=== PATIENT | female | born 1990 | race Caucasian/White ===

== ENCOUNTER 2019-04-18 09:26 | Emergency (ER) | payer BC, OTHER, SELFPAY ==
[2019-04-18 09:34] VITALS: BP 132/77; PULSE 104; RESP 20; TEMP 36.8; O2SAT 99
--- NOTE | 2019-04-18 09:36 | ED.GENADULT ---
HPI - General Adult General Chief complaint: Upper Respiratory Infection Stated complaint: Sore throat with flu symptoms Time Seen by Provider: 04/18/19 09:48 Source: patient and RN notes reviewed Mode of arrival: ambulatory Limitations: no limitations History of Present Illness HPI narrative: This is a 28 years old female presents to the office for an evaluation of cold symptoms for one week. Worsen today with cough and shortness of breathe when she takes a deep breathing. She also reports bad sore throat. Exposed to influenza A three days ago. She is 28 weeks . No treatment prior to arrival. Related Data Home Medications Medication Instructions Recorded Confirmed no.144-folic acid mcg PO 04/18/19 [] Allergies Allergy/AdvReac Type Severity Reaction Status Date / Time No Known Allergies Allergy Verified 04/18/19 09:41 Review of Systems Review of Systems: Narrative: CONSTITUTIONAL: Denies fever, chills, sweats. ENT: Reports head congestion, sore throat. Denies ears pain CARDIOVASCULAR: Denies chest pain RESPIRATORY: Reports cough with chest tightness and dyspnea on exertion GASTROINTESTINAL: Denies abdominal pain, nausea, vomiting, diarrhea. GENITOURINARY: Denies urinary symptoms or discharge SKIN: Denies rash MUSCULOSKELETAL: Denies acute back pain NEUROLOGIC: Denies lightheaded PMFSH Past Medical History Medical History Gestational HTN Surgical History Surgical History H/O section Jan 2017 Family History Family History Sibling Diabetes mellitus Comments At time of signature, I agree with nursing past medical, surgical, social and family history. There is no relevant family history pertinent to the presenting complaint. Exam Narrative: Exam Narrative: GENERAL: This is a well-nourished, well-developed patient, in no apparent distress. EYES:Sclera clear/white. Vision is grossly intact. EARS: External ears normal, auditory canals clear and without drainage, TMs normal without perforation. Hearing grossly intact. NOSE: External nose normal with no obvious nasal discharge, nares without redness, no rhinorrhea. THROAT: Mucous membranes moist, posterior pharynx clear. NECK: Neck supple, non-tender without lymphadenopathy, masses or thyromegaly. CARDIOVASCULAR: Regular rate and rhythm without murmurs, gallops, or rubs. RESPIRATORY: Clear to auscultation. Breath sounds equal bilaterally. No wheezes, rales, or rhonchi. SKIN: warm, intact with no suspicious lesions or rash, good texture and turgor. NEURO: awake, alert, and oriented to person, place and time. There were no obvious focal neurologic abnormalities. Steady gait [place] Coma Scale Eye Opening: Spontaneous 4 [place] Coma Scale Motor: Obeys Commands 6 [place] Coma Scale Verbal: Oriented 5 Course Vital Signs Vital signs: Vital Signs Temperature 98.2 F 04/18/19 09:34 Pulse Rate 104 H 04/18/19 09:34 Respiratory Rate 20 04/18/19 09:34 Blood Pressure 132/77 04/18/19 09:34 Pulse Oximetry 99 04/18/19 09:34 Temperature 98.2 F 04/18/19 09:34 Pulse Rate 104 H 04/18/19 09:34 Respiratory Rate 20 04/18/19 09:34 Blood Pressure 132/77 04/18/19 09:34 Pulse Oximetry 99 04/18/19 09:34 Medical Decision Making MDM Narrative Medical decision making narrative: Discharge instructions reviewed with patient, as well as provided in writing per nursing staff. The instructions also include specific and strict return/GO TO THE ER as well as f/u information. All questions have been answered, and the patient deny any further questions with discharge and discharge plan. Differential Diagnosis Differential Diagnosis: pneumonia, Allergic Rhinitis, Upper respiratory cough syndrome, Pharyngitis, Sinusitis, Bronchitis, otitis media
== END 2019-04-18 10:08 | disposition home or self-care (01) ==
PROVIDERS: Emergency Provider Nurse Practitioner
DX: O99.513 Diseases of the respiratory system complicating pregnancy, third trimester (principal); Z3A.28 28 weeks gestation of pregnancy; J10.1 Influenza due to other identified influenza virus with other respiratory manifestations; O13.3 Gestational [pregnancy-induced] hypertension without significant proteinuria, third trimester
CPT/HCPCS: 87081; 87804; 87880; 99213; G0463

== ENCOUNTER 2019-04-23 17:21 | Outpatient (RCR) | payer BC, OTHER, SELFPAY ==
[2019-04-23] MEDS: RHO(D) IMMUNE GLOBULIN 300 MCG SYRINGE IM (17:50)
== END 2019-07-21 23:59 | disposition home or self-care (01) ==
LOC: ANHLAB 17:21
PROVIDERS: Visit Provider Student in an Organized Health Care Education/Training Program
DX: Z29.13 Encounter for prophylactic Rho(D) immune globulin (principal); O36.0990 Maternal care for other rhesus isoimmunization, unspecified trimester, not applicable or unspecified; Z3A.00 Weeks of gestation of pregnancy not specified
CPT/HCPCS: 36415; 86900; 86901; 90384; 96372; J2790

== ENCOUNTER 2019-06-29 13:31 | Outpatient (CLI) | payer BC, OTHER, SELFPAY ==
[2019-06-29] VITALS (8 sets, daily range): BP systolic 116–139; BP diastolic 57–89; PULSE 81–94
[2019-06-29 14:58] LABS: Basophils Percent Auto 0.5 % (0.2-1.2); Eosinophils Percent Auto 0.3 % (0-4.4); Hematocrit 27.9 % (37.0-47.0); Hemoglobin 8.8 g/dL (12.0-15.0); Immature Granulocyte Absolute 0.09 K/mm3 (0.00-0.031); Lymphocytes Absolute Auto 1.21 K/mm3 (0.9-3.2); Lymphocytes Percent Auto 13.9 % (18.3-44.2); Mean Corpuscular HGB Conc 31.5 g/dl (32-36); Mean Corpuscular Hemoglobin 25.1 pg (26-34); Mean Corpuscular Volume 79.5 fl (80-100); Monocytes Absolute Auto 0.6 K/mm3 (0.1-0.6); Monocytes Percent Auto 6.4 % (2.6-8.5); Neutrophils Absolute Auto 6.8 K/mm3 (1.3-6.7); Neutrophils Percent Auto 77.9 % (45.5-73.1); Nucleated Red Blood Cells Perc 0.2 % (0.0-0.2); Platelet Count Result 174 k/mm3 (150-375); Red Blood Count 3.51 M/mm3 (4.2-5.4); Red Cell Distribution Width 15.7 % (11.5-14.5); White Blood Count 8.7 K/mm3 (4.5-10.0)
[2019-06-29 15:00] LABS: Creatinine Urine 155.6 mg/dL; Total Protein Urine Random 18 mg/dL
[2019-06-29 15:01] LABS: Add Urine Microscopic? YES; Appearance Urine Cloudy (Clear); Bacteria Urine Trace /hpf; Bilirubin Urine Negative (Negative); Blood Urine Negative (Negative); Color Urine Yellow (Yellow); Glucose Urine UA Negative (Negative); Ketones Urine Negative (Negative); Leukocyte Esterase Ur Negative LEU/UL (NEGATIVE); Mucus Urine Heavy /lpf; Nitrate Urine Negative (Negative); Protein Urine 1+ mg/dL (Negative); Specific Grav Ur 1.021 (1.001-1.035); Squamous Epithelial Cell Urine Many /hpf (Few); Urobilinogen Urine Negative mg/dL (<2.0); WBC Urine 0-3 /hpf (0-3)
--- NOTE | 2019-06-29 15:03 | OBADM ---
This patient, Brina Boone, admitted to the OB room OB Post 116 for observation. Patient/family oriented to hospital policies and general routines including ID bracelet, bed and alarms, visiting hours, pain management, procedures, bathroom and other care routines, personal items, smoking policy, room service/diet, and visiting hours. Patient/Family are encouraged to report perceived risks to care and to ask questions if they do not understand what they are told or what they should do.
[2019-06-29 15:06] LABS: Alanine Aminotransferase 13 U/L (4-35); Albumin Level 3.3 g/dL (3.5-5.1); Alkaline Phosphatase 177 U/L (38-126); Aspartate Amino Transferase 22 U/L (14-36); Bilirubin,Total 0.5 mg/dL (0.2-1.3); Blood Urea Nitrogen 9 mg/dL (7-17); Calcium 8.4 mg/dL (8.4-10.2); Carbon Dioxide 22 mmol/L (22-30); Chloride 105 mmol/L (98-107); Estimated Glomerular Filt Rate > 60; Glucose 78 mg/dL (65-105); Potassium 3.9 mmol/L (3.4-5.0); Sodium 134 mmol/L (137-145); Uric Acid 4.2 mg/dL (2.5-7.5)
--- NOTE | 2019-06-29 15:27 | PM.OBTRLD ---
OB - Triage/Final Diagnosis Visit Information Date of evaluation: 06/29/19 Reason for evaluation: other (htn) Evaluation Laboratory results: Laboratory Tests 06/29/19 06/29/19 06/29/19 14:45 14:45 14:45 WBC 8.7 RBC 3.51 L Hgb 8.8 L Hct 27.9 L MCV 79.5 L MCH 25.1 L MCHC 31.5 L RDW 15.7 H Plt Count 174 MPV 11.0 H Immature Gran % (Auto) 1.0 H Neut % (Auto) 77.9 H Lymph % (Auto) 13.9 L [place] % (Auto) 6.4 Eos % (Auto) 0.3 Baso % (Auto) 0.5 Lymph # (Auto) 1.21 [place] # (Auto) 0.6 Eos # (Auto) 0.0 Baso # (Auto) 0.0 Abs Immat Gran (auto) 0.09 H Absolute Neuts (auto) 6.8 H Absolute Nucleated RBC 0.0 Nucleated RBC % 0.2 Sodium Potassium Chloride Carbon Dioxide BUN Creatinine Estim Creat Clear Calc Estimated GFR Glucose Uric Acid Calcium Total Bilirubin AST ALT Alkaline Phosphatase Total Protein Albumin Urine Color Yellow Urine Appearance Cloudy H Urine pH 6.0 Ur Specific [place] 1.021 Urine Protein 1+ H Urine Glucose (UA) Negative Urine Ketones Negative Ur Blood (Man) Negative Urine Nitrate Negative Urine Bilirubin Negative Urine Urobilinogen Negative Ur Leukocyte Esterase Negative Urine WBC 0-3 Ur Squamous Epith Cells Many H Urine Bacteria Trace Urine Mucus Heavy H U Random Total Protein 18 Urine Creatinine 155.6 06/29/19 14:45 WBC RBC Hgb Hct MCV MCH MCHC RDW Plt Count MPV Immature Gran % (Auto) Neut % (Auto) Lymph % (Auto) [place] % (Auto) Eos % (Auto) Baso % (Auto) Lymph # (Auto) [place] # (Auto) Eos # (Auto) Baso # (Auto) Abs Immat Gran (auto) Absolute Neuts (auto) Absolute Nucleated RBC Nucleated RBC % Sodium 134 L Potassium 3.9 Chloride 105 Carbon Dioxide 22 BUN 9 Creatinine 0.70 Estim Creat Clear Calc Not Reportable Estimated GFR > 60 Glucose 78 Uric Acid 4.2 Calcium 8.4 Total Bilirubin 0.5 AST 22 ALT 13 Alkaline Phosphatase 177 H Total Protein 6.0 L Albumin 3.3 L Urine Color Urine Appearance Urine pH Ur Specific [place] Urine Protein Urine Glucose (UA) Urine Ketones Ur Blood (Man) Urine Nitrate Urine Bilirubin Urine Urobilinogen Ur Leukocyte Esterase Urine WBC Ur Squamous Epith Cells Urine Bacteria Urine Mucus U Random Total Protein Urine Creatinine Vital signs: Vital Signs - 24 hr 06/29/19 14:04 06/29/19 14:15 06/29/19 14:30 Pulse Rate 94 94 81 Blood Pressure 139/89 136/81 129/76 06/29/19 14:45 06/29/19 15:00 Pulse Rate 84 81 Blood Pressure 127/80 116/70
--- NOTE | 2019-07-01 09:40 | PM.IMHP ---
H&P: HPI History of Present Illness Chief complaint: Elevated BP Narrative: Brina Boone is a 28 year old female previous section menstrual was 10/02/2018 EDC of 07/09/2019 confirmed by 8 week ultrasound presents for repeat section her has been uncomplicated risks and benefits were reviewed Review of Systems Review of Systems: All systems reviewed & are unremarkable except as noted in HPI and below PMFSH Past Medical History Medical History Gestational HTN Surgical History Surgical History H/O section Jan 2017 Family History Family History Sibling Diabetes mellitus Meds Home Medications and Allergies Home Medications Medication Instructions Recorded Confirmed Type oseltamivir [Tamiflu] 75 mg PO BID 5 Days #10 cap 04/18/19 Rx no.144-folic acid mcg PO 04/18/19 History [] Allergies Allergy/AdvReac Type Severity Reaction Status Date / Time No Known Allergies Allergy Verified 04/18/19 09:41 Exam Const: General: no acute distress Eyes: General: appearance normal, both eyes and all related structures Neck: Neck: supple and no JVD Thyroid: thyroid normal Resp: Effort & Inspection: normal respiratory effort Auscultation: clear to auscultation bilaterally Cardio: Rate: regular rate Rhythm: regular rhythm GI: Inspection: normal to inspection (Gravid soft uterus. Last cervical check closed) : General: Yes bladder normal to palpation External Female Exam: normal external appearance Speculum Exam - Vagina: normal vaginal discharge and No vaginal bleeding Speculum Exam - Cervix: nontender Bimanual exam- vagina & uterus: bladder normal to palpation and No Cervical tenderness present OB/external & speculum: No vaginal bleeding Skin: General skin exam: no rashes or lesions noted Extrem: General: normal to inspection and no edema Psych: Mental Status: mental status grossly normal Affect: normal affect Assessment and Plan Additional Plan Impression: Term with previous sections Plan: Repeat low-transverse section
== END 2019-06-29 15:45 | disposition home or self-care (01) ==
LOC: ANHOBOP 13:43 → ANHOBPP 13:46
PROVIDERS: Visit Provider Obstetrics & Gynecology
DX: O13.9 Gestational [pregnancy-induced] hypertension without significant proteinuria, unspecified trimester (principal)
CPT/HCPCS: 36415; 59025; 80053; 81001; 82570; 84156; 84550; 85025; 99199

== ENCOUNTER 2019-07-01 13:23 | Outpatient (CLI) | payer BC, OTHER, SELFPAY ==
[2019-07-01 13:55] LABS: Hematocrit 27.9 % (37.0-47.0); Hemoglobin 8.8 g/dL (12.0-15.0); Mean Corpuscular HGB Conc 31.5 g/dl (32-36); Mean Corpuscular Hemoglobin 25.1 pg (26-34); Mean Corpuscular Volume 79.5 fl (80-100); Mean Platelet Volume 11.5 fl (7.4-10.4); Platelet Count Result 173 k/mm3 (150-375); Red Blood Count 3.51 M/mm3 (4.2-5.4); Red Cell Distribution Width 15.7 % (11.5-14.5); White Blood Count 8.1 K/mm3 (4.5-10.0)
[2019-07-02 07:25] LABS: Rapid Plasma Reagin Non-Reactive (NonReactive)
== END 2019-07-01 13:24 | disposition home or self-care (01) ==
PROVIDERS: Visit Provider Obstetrics & Gynecology
DX: Z01.818 Encounter for other preprocedural examination (principal)
CPT/HCPCS: 36415; 85027; 86592; 86850; 86880; 86900; 86901; 86902

== ENCOUNTER 2019-07-02 05:35 | Inpatient (IN) | payer BC, OTHER, SELFPAY ==
[2019-07-02] VITALS (64 sets, daily range): BP systolic 115–150; BP diastolic 64–98; PULSE 72–99; RESP 18–20; TEMP 36.6–37.5; O2SAT 96–100; BMI 39.3
--- NOTE | 2019-07-02 06:16 | WPDHPUPDATE1 ---
History and Physical Update Update Date/Time: 07/02/19 06:16 History and Physical has been reviewed, including an updated exam of the patient. There are NO changes in the patient's condition. Risks, benefits, and alternatives have been discussed and questions answered. Patient agrees to proceed with procedure.
[2019-07-02] MEDS: LACTATED RINGERS 1,000 ML 999 ML IV CONT ×2 (06:25→07:01)
--- NOTE | 2019-07-02 06:47 | LDADM ---
This patient, Brina Boone, was admitted to Labor/Delivery/Recovery 120 on 07/02/19 at 05:35. Plans for and pain management were discussed with patient. Patient/family oriented to hospital policies and general routines including ID bracelet, bed and alarms, visiting hours, pain management, procedures, bathroom and other care routines, personal items, smoking policy, room service/diet and guest tray routines, security routines, and visiting hours. Patient/Family are encouraged to report perceived risks to care and to ask questions if they do not understand what they are told or what they should do. See OBIX for further documentation.
--- NOTE | 2019-07-02 06:57 | WPDANESEPPF ---
Anes - Initial Pre Proc Eval Procedure: Operation Date: 07/02/19 07:30 Proposed Procedures p Repeat Section - Franko Santos MD Date/Time: 07/02/19 06:57 Surgeon: Franko Santos MD Pre Op Diagnosis: previous csection Patient Data Age: 28 Gender: F Height: 5 ft 7 in Weight: 114 kg Last Vital Signs Temp 36.6 C 07/02/19 06:47 Pulse 88 07/02/19 06:14 Resp 20 07/02/19 06:47 BP 117/81 07/02/19 06:14 Allergies Allergy/AdvReac Type Severity Reaction Status Date / Time No Known Allergies Allergy Verified 04/18/19 09:41 Home Medications Medication Instructions Recorded Confirmed Type oseltamivir [Tamiflu] 75 mg PO BID 5 Days #10 cap 04/18/19 Rx no.144-folic acid mcg PO 04/18/19 History [] hydrocodone-acetaminophen [[place]] 1 tablet PO Q4H PRN #30 tablet 07/02/19 Rx Patient hx anesthesia problems: none Family hx anesthesia problems: none PMFSH Past Medical History Medical History Anemia Gestational HTN Surgical History Surgical History H/O section Jan 2017 Family History Family History Sibling Diabetes mellitus Social History Social History Smoking status: Never smoker Substance use: never Spiritual care concerns: No Anes - Eval Final PreProcedure Day of Procedure 07/02/19 06:57 Patient weight: morbidly obese Heart: regular rate and rhythm Lungs: decreased breath sounds Airway: Mallampati scale class II Neurological: alert and oriented Last oral intake: >/= 8 hours ASA classification: III Emergent: no Anesthetic plan: proceed Anesthesia type and monitoring: regional spinal and standard monitoring Informed Consent: The patient's anesthetic plan and its attendant risks and benefits were discussed with the patient/family/POA. Questions were solicited and answers provided to the satisfaction of the patient/family/POA.
[2019-07-02] MEDS: ceFAZolin 2 GM/D5W 50 ML 2 GM/50 ML BAG IVPB (07:24)
--- NOTE | 2019-07-02 08:10 | PM.PROC ---
Procedure Note - Detailed Date of procedure: 07/02/19 Pre-op diagnosis: previous csection Surgeon: Franko Santos MD Postop diagnosis: Previous section/term : Procedure: Repeat low-transverse section Q BL: 705cc Anesthesia: Spinal Findings: Male infant 9 lb 7 oz/Apgars 8 and 9 at 1 and 5 minutes respectively Complications: None Description of procedure the patient was prepped and draped in the normal sterile fashion and placed in the supine position under excellent spinal anesthetic the abdomen was entered in Pfannenstiel fashion progress through layers to the fascia. Fascia was incised in an upward outward fashion bilaterally. Underlying muscles were sharply dissected. Parietal peritoneum of the elevated by Mayra clamps and entered by sharp dissection. This was carried superiorly then inferiorly to the dome of the bladder. A bladder blade was placed. Bladder flap was formed. Bladder blade returned. Low-transverse incision made and the head delivered in the RADHA position. Nuchal cord was loose x1 reviewed on the occiput. Anterior posterior shoulder delivered spontaneously. Cord clamped x2 and cut. Infant passed off the table with an excellent cry. Placenta delivered intact manually. Uterus cleaned any debris membranes. The lower uterine segment was then closed with continuous running locking 0 Vicryl from lateral edge to lateral edge. This was followed by a 2nd imbricating running locking 0 Vicryl from lateral edge to lateral edge. Hemostasis was assured. The tubes and ovaries appeared within normal limits. The uterus returned to the abdomen. The hysterotomy incision inspected 1 last time noted to be hemostatic. The laps were removed and accounted for. The fascia closed with continuous running 0 Vicryl from lateral edge to midline bilaterally. Irrigation of the subcutaneous layer. The skin closed with 4 O Monocryl and glue. Blood loss estimated at 7 5cc. All sponge, needle, instrument counts were correct. There were no immediate complications
[2019-07-02] MEDS: OXYTOCIN 30 UNITS/NS 500 ML 30 UNITS/500 ML BAG 125 UNITS IV CONT (09:01)
[2019-07-02] MEDS: MORPHINE SULFATE 2 MG/ML INJ 3 MG IV PUSH (09:10)
--- NOTE | 2019-07-02 11:35 | OBPPTRN ---
Addendum entered by Natalia Barriga RN 07/02/19 11:35: Pt arrived to floor at 1025. Original Note: Patient transferred to post room #282 via stretcher. Support person present. Oriented to unit, room, information board, rooming in, admission packet and security measures. Patient verbalizes understanding.
[2019-07-02] MEDS: DEXTROSE 5%/0.45% SOD CHL 1,000 ML 125 ML IV CONT (13:32)
[2019-07-02] MEDS: IBUPROFEN 600 MG TABLET PO ×2 (13:56→23:16)
[2019-07-02] MEDS: DOCUSATE SODIUM 100 MG CAPSULE PO (18:19)
[2019-07-02] MEDS: POLYSACCHARIDE IRON COMPLEX 150 MG CAPSULE PO (18:19)
[2019-07-03 04:00] VITALS: BP 130/94; PULSE 95; RESP 18; TEMP 36.8
[2019-07-03 05:51] LABS: Basophils Percent Auto 0.1 % (0.2-1.2); Eosinophils Absolute Auto 0.1 K/mm3 (0-0.3); Hematocrit 25.5 % (37.0-47.0); Hemoglobin 7.9 g/dL (12.0-15.0); Immature Granulocyte Absolute 0.06 K/mm3 (0.00-0.031); Immature Granulocyte Percent A 0.9 % (0-0.5); Lymphocytes Absolute Auto 0.96 K/mm3 (0.9-3.2); Lymphocytes Percent Auto 13.6 % (18.3-44.2); Mean Corpuscular Volume 80.7 fl (80-100); Mean Platelet Volume 11.1 fl (7.4-10.4); Monocytes Absolute Auto 0.5 K/mm3 (0.1-0.6); Monocytes Percent Auto 7.4 % (2.6-8.5); Neutrophils Absolute Auto 5.4 K/mm3 (1.3-6.7); Nucleated Red Blood Cells Perc 0.3 % (0.0-0.2); Platelet Count Result 144 k/mm3 (150-375); Red Blood Count 3.16 M/mm3 (4.2-5.4); Red Cell Distribution Width 15.7 % (11.5-14.5)
--- NOTE | 2019-07-03 06:47 | PM.OBPNVD ---
OB - PN: Subj Subjective Date/time seen: 07/03/19 06:47 Patient comments: no complaints and pain well controlled baby status: doing well and nursing well OB - PN: Obj Data Labs CBC & Chem 7: 07/03/19 04:34 Labs: Laboratory Results - last 24 hr 07/03/19 04:34 WBC 7.0 RBC 3.16 L Hgb 7.9 L Hct 25.5 L MCV 80.7 MCH 25.0 L MCHC 31.0 L RDW 15.7 H Plt Count 144 L MPV 11.1 H Immature Gran % (Auto) 0.9 H Neut % (Auto) 77.0 H Lymph % (Auto) 13.6 L [place] % (Auto) 7.4 Eos % (Auto) 1.0 Baso % (Auto) 0.1 L Lymph # (Auto) 0.96 [place] # (Auto) 0.5 Eos # (Auto) 0.1 Baso # (Auto) 0.0 Abs Immat Gran (auto) 0.06 H Absolute Neuts (auto) 5.4 Absolute Nucleated RBC 0.0 Nucleated RBC % 0.3 H OB - PN A/P Plan day: 1 Plan: routine care Time Spent With Patient Time: Total time spent is greater than 50% in coordination of care (as documented) at patient's floor/unit and/or counseling patient: Time with patient: less than 15 minutes Review of Systems Review of Systems: All systems reviewed & are unremarkable except as noted in HPI and below Exam Const: General: no acute distress Eyes: General: appearance normal, both eyes and all related structures Neck: Neck: supple and no JVD Thyroid: thyroid normal Resp: Effort & Inspection: normal respiratory effort Auscultation: clear to auscultation bilaterally Cardio: Rate: regular rate Rhythm: regular rhythm GI: Inspection: normal to inspection and incision (cdi) : General: Yes other (flow light) Skin: General skin exam: no rashes or lesions noted Extrem: General: normal to inspection and no edema Psych: Mental Status: mental status grossly normal Affect: normal affect
[2019-07-03] MEDS: DOCUSATE SODIUM 100 MG CAPSULE PO ×2 (07:50→17:00)
[2019-07-03] MEDS: POLYSACCHARIDE IRON COMPLEX 150 MG CAPSULE PO ×2 (07:50→17:00)
[2019-07-03] MEDS: IBUPROFEN 600 MG TABLET PO ×3 (07:51→21:04)
[2019-07-03 08:20] VITALS: BP 107/61; PULSE 76; RESP 18; TEMP 36.9; O2SAT 98
--- NOTE | 2019-07-03 08:52 | WPDANLDPN2 ---
Anes-Prog Note L&D Date/Time: 07/03/19 08:52 Comfortable throughout: section Neuraxial method: spinal Epidural/Spinal procedure site: clean & non-tender Neuro status: Neuro function grossly intact. Cardiovascular status: normal Respiratory status: normal Airway patency: baseline Mental status: baseline Post-Op hydration status: normal Vital Signs: Last Vital Signs Temp 36.8 C 07/03/19 04:00 Pulse 95 07/03/19 04:00 Resp 18 07/03/19 04:00 BP 130/94 H 07/03/19 04:00 Pulse Ox 100 07/02/19 14:00 Pain score (VAS): 0/10. Patient resting in bed at time of assessment, appears comfortable. I/O: Intake & Output 07/02/19 07/03/19 07/03/19 23:59 07:59 15:59 Intake Total 2100 550 Output Total 1900 1100 Balance 200 -550 Post-procedural complaints: none Patient feedback: Patient satisfied with anesthetic care.
--- NOTE | 2019-07-03 08:52 | WPDANLDNPN2 ---
Anes-Prog Note L&D-Neuraxial Date/Time: 07/03/19 08:52 Neuraxial medications: intrathecal PF morphine Opiod-related complaints: none Patient feedback: Patient satisfied with post-operative pain management.
[2019-07-03] MEDS: SERTRALINE HCL 50 MG TABLET PO (11:36)
[2019-07-03] MEDS: RHO(D) IMMUNE GLOBULIN 300 MCG SYRINGE IM (13:17)
[2019-07-03 19:15] VITALS: BP 133/81; PULSE 89; RESP 18; TEMP 36.7; O2SAT 100
--- NOTE | 2019-07-03 20:00 | PC.NURSE ---
Patient viewed the discharge video Mother & Baby Care, The First Two Weeks . Patient was given the opportunity and encouraged to ask questions. Patient verbalized understanding of information shared and has been given the mother/baby guide for home reference.
[2019-07-04] MEDS: IBUPROFEN 600 MG TABLET PO ×2 (04:58→12:17)
[2019-07-04] MEDS: DOCUSATE SODIUM 100 MG CAPSULE PO (08:06)
[2019-07-04] MEDS: SERTRALINE HCL 50 MG TABLET PO (08:06)
[2019-07-04] MEDS: POLYSACCHARIDE IRON COMPLEX 150 MG CAPSULE PO (08:07)
[2019-07-04 08:55] VITALS: BP 141/97; PULSE 83; RESP 18; TEMP 36.5
[2019-07-04 11:35] VITALS: BP 111/70
--- NOTE | 2019-07-04 11:50 | PM.OBPNVD ---
OB - PN: Subj Subjective Date/time seen: 07/04/19 11:50 Narrative: Pain OK. Tolerating diet. Would like to go home. OB - PN: Obj Data Labs CBC & Chem 7: 07/03/19 04:34 Labs: Laboratory Results - last 24 hr 07/03/19 04:34 Blood Type O Negative Antibody Screen TNP ILYA, IgG Interpret TNP ILYA, Poly Interpret TNP ILYA, Complement Interp TNP Screen Negative Baby's Blood Type B pos Baby's ILYA Positive Doses of RhIg Required 1 OB - PN A/P Plan Comments: A: POD#2, doing well. P: Home to f/u 4 weeks. Exam Narrative: Exam Narrative: AVSS ABD soft, nontender, fundus firm. Incision c/d/i. EXT nontender
[2019-07-07 10:50] VITALS: BP 122/81; PULSE 85; RESP 20; TEMP 37; O2SAT 99
--- NOTE | 2019-07-08 06:56 | PM.DS ---
DS: Diagnosis Admitting Diagnosis Admitting Diagnosis: Encounter for supervision of normal , unspecified, third trimester term/prev section DS: Summary Time Spent with Patient Time attestation: Total time spent providing and/or coordinating discharge services: Exam Const: General: no acute distress Eyes: General: appearance normal, both eyes and all related structures Neck: Neck: supple and no JVD Thyroid: thyroid normal Resp: Effort & Inspection: normal respiratory effort Auscultation: clear to auscultation bilaterally Cardio: Rate: regular rate Rhythm: regular rhythm GI: Inspection: non-distended GI Palp: Yes Soft to palpation, No Tenderness to palpation present (GI) and No Guarding due to palpation present (GI) Auscultation: normal bowel sounds : General: Yes bladder normal to palpation External Female Exam: normal external appearance Speculum Exam - Vagina: normal vaginal discharge and No vaginal bleeding Speculum Exam - Cervix: nontender Bimanual exam- vagina & uterus: bladder normal to palpation and No Cervical tenderness present OB/external & speculum: No vaginal bleeding Skin: General skin exam: no rashes or lesions noted Extrem: General: normal to inspection and no edema Psych: Mental Status: mental status grossly normal Affect: normal affect Discharge Plan Discharge Attending physician on discharge: Franko Santos Consulting providers: Dick Marcano Discharging Clinician: Franko Santos Patient Disposition: Home, Self-Care Activity: may shower, may drive after 2 weeks and pelvic rest Diet: regular Wound Care Instructions: follow printed instructions Discharge Instructions: Call or return if temperature above 100.4? F, increased abdominal pain, increased vaginal bleeding or any new problems. Education: Mom and Baby Guide and Preeclampsia Handout Given to: Mother Follow-Up: Call your delivering provider's office for an appointment to be seen in: 4 Weeks Mom and baby should come to the [facility] for the follow-up appointment. Appointment Date/Time: July 07, 2019 at 11:00 am What to expect at your follow-up visit: Physical Assessment Call [phone] if you are unable to keep your appointment time. BREAST CARE: 1. Wear a snug supportive bra. 2. For engorgement discomfort: Bottle Feeding: A. May apply ice packs ABDOMINAL INCISION: (if applicable) 1. Allow incision to air dry 2. Do NOT use lotions for powders on your incision 3. When showering, allow soap and water to run over the incision, but do not wash incision EPISIOTOMY/PERINEAL CARE: 1. Until bleeding stops, use your glenda bottle after urinating 2. Change your pad frequently throughout the day 3. No tub baths until seen by your physician - You may shower ACTIVITY: 1. Rest as much as possible. 2. Do not exercise or lift anything heavier than your baby (such as laundry or other children.) 3. Avoid stairs or driving as much as possible. 4. Do not put anything into the vagina. No douching, tampons, or sexual activity until seen by physician. NOTIFY PHYSICIAN IF YOU HAVE ANY QUESTIONS OR IF ANY OF THE FOLLOWING SYMPTOMS OCCUR: 1. If your incision becomes red, swollen, or more painful than what you have experienced in the hospital. 2. If your vaginal bleeding becomes foul smelling. 3. If your vaginal bleeding becomes more heavy than a period or if your bleeding changes from pink to bright red. However, you may pass an occasional walnut-sized clot once or twice for the first week . 4. If you experience a sharp, shooting pain in you calves. 5. If you discover a hard, reddened area on your breast or if you experience flu-like symptoms. DIET: 1. Eat regular, well-balanced meals. 2. Drink plenty of fluids daily. If , drink to thirst. Stand Alone Forms: General Discharge Information Follow-up/Referrals: Franko Santos
--- NOTE | 2019-07-14 17:10 | P.HP_ITS ---
H&P: HPI History of Present Illness Chief complaint: previous csection Narrative: Brina Boone is a 28 year old female multip in active labor. previous section Review of Systems Review of Systems: All systems reviewed & are unremarkable except as noted in HPI and below PMFSH Past Medical History Medical History Anemia Gestational HTN Surgical History Surgical History H/O section Jan 2017 Family History Family History Sibling Diabetes mellitus Social History Social History Smoking status: Never smoker Substance use: never Spiritual care concerns: No Meds Home Medications and Allergies Home Medications Medication Instructions Recorded Confirmed Type mcg PO 04/18/19 History cholecalciferol (vitamin D3) 07/02/19 History ferrous sulfate 07/02/19 History hydrocodone-acetaminophen [[place]] 1 tablet PO Q4H PRN #30 tablet 07/02/19 Rx ibuprofen 600 mg PO Q6H PRN #30 tablet 07/04/19 Rx Allergies Allergy/AdvReac Type Severity Reaction Status Date / Time No Known Allergies Allergy Verified 04/18/19 09:41 Exam Const: General: no acute distress Eyes: General: appearance normal, both eyes and all related structures Neck: Neck: supple and no JVD Thyroid: thyroid normal Resp: Effort & Inspection: normal respiratory effort Auscultation: clear to auscultation bilaterally Cardio: Rate: regular rate Rhythm: regular rhythm GI: Inspection: non-distended GI Palp: Yes Soft to palpation, No Tenderness to palpation present (GI) and No Guarding due to palpation present (GI) Auscultation: normal bowel sounds : General: Yes bladder normal to palpation External Female Exam: normal external appearance Speculum Exam - Vagina: normal vaginal discharge and No vaginal bleeding Speculum Exam - Cervix: nontender Bimanual exam- vagina & uterus: bladder normal to palpation and No Cervical tenderness present OB/external & speculum: No vaginal bleeding Skin: General skin exam: no rashes or lesions noted Extrem: General: normal to inspection and no edema Psych: Mental Status: mental status grossly normal Affect: normal affect Assessment and Plan Additional Plan impresion:term/prev section Plan: rltcs
== END 2019-07-04 12:27 | disposition home or self-care (01) | DRG 788 ==
LOC: ANHLDR 05:39 → ANHOB2 07-04 11:53 → ANHLDR 07-06 14:51 → ANHOB2 07-06 14:51
PROVIDERS: Admitting Provider Obstetrics & Gynecology; Visit Provider Obstetrics & Gynecology
PROC: 10D00Z1 Extraction of Products of Conception, Low, Open Approach (ICD-10-PCS; CPT 59514; principal; 2019-07-02 07:30)
DX: O34.211 Maternal care for low transverse scar from previous cesarean delivery (principal); Z3A.39 39 weeks gestation of pregnancy; Z37.0 Single live birth; Z23 Encounter for immunization; O99.214 Obesity complicating childbirth; E66.01 Morbid (severe) obesity due to excess calories; O69.81X0 Labor and delivery complicated by cord around neck, without compression, not applicable or unspecified
CPT/HCPCS: 36415; 85025; 85461; 86880; 90384; A9270; J0131; J0690; J2210; J2270; J2274; J2405; J2590; J2790; J7120

== ENCOUNTER 2020-02-16 11:01 | Emergency (ER) | payer BC, OTHER, SELFPAY ==
--- NOTE | ~2020-02-16 | US_ITS ---
EXAMINATION: US pelvic complete w TV DATE: 02/16/2020 13:05 INDICATION: Right adnexal cyst seen on CT. Comparison:CT dated 02/16/2020 TECHNIQUE: Multiple transabdominal and endovaginal sonographic images of the pelvis performed. FINDINGS: The uterus measures 9.7 x 4.6 x 5.7 cm. The endometrial complex measures 1.2 cm. The right ovary measures 4.3 x 4.7 x 3.8 cm and the left ovary measures 2.2 x 1.6 x 1.7 cm. There is a 3.4 cm simple cyst of the right ovary. There is no free fluid in the pelvis. There are no abnormal masses seen on either side. IMPRESSION: 1. 3.4 cm simple cyst of the right ovary. 2: Mild endometrial thickening measuring 1.2 cm. Reviewed, dictated and finalized at location A. ITE FABRICATOR
--- NOTE | ~2020-02-16 | CT_ITS ---
EXAMINATION: CT abdomen pelvis w con DATE: 02/16/2020 12:16 INDICATION: Generalized abdominal pain. TECHNIQUE: Computed tomography (CT) of the abdomen and pelvis was performed with 100 mL Omnipaque 350 intravenous contrast. Automated exposure control and iterative reconstruction technique were employe d. The dose-length product was 1278.79 mGy-cm. COMPARISON: None. FINDINGS: The visualized portions of the lung bases are clear without pneumonia or pleural effusion. The heart size is normal. No pericardial effusion. The liver, gallbladder, spleen, pancreas, adrenal glands, and kidneys are normal. There is a 4.3 cm mass in right ovary. There are no dilated loops of bowel. There are changes of appendectomy. There are no pathologically enlarged lymph nodes. There is no free intraperitoneal fluid. There is mild lumbar spondylosis. IMPRESSION: 1. 4.3 cm mass in right ovary, most likely a hemorrhagic cyst. Pelvis ultrasound is recommended. Reviewed, dictated and finalized at location A. CAR FOREMAN IMPRESSION: 1. 4.3 cm mass in right ovary, most likely a hemorrhagic cyst. Pelvis ultrasoun d is recommended.
[2020-02-16 11:13] VITALS: BP 115/79; PULSE 86; RESP 16; TEMP 36.3; O2SAT 99
--- NOTE | 2020-02-16 11:14 | ED.ABDPAIN ---
HPI - Abdominal Pain General Chief Complaint: Abdominal Pain Stated Complaint: severe abd pain onset 50 min ago, gone now Time Seen by Provider: 02/16/20 11:14 Source: patient and family Mode of arrival: ambulatory Limitations: no limitations History of Present Illness HPI narrative: Patient is a 29-year-old female that presents for evaluation of centralized abdominal pain that began approximately an hour ago. Described as sharp, cramping in nature in the center of the abdomen with radiation to the back. No associated dysuria she has had some associated diarrhea and nausea. Patient denies fever or chills. She has a history of appendectomy but denies other abdominal surgeries. She states she has an implanted control and doubts she is . Patient says she had an oatmeal pie for breakfast and then pain started soon after. She denies history of gallbladder issues. Pain initially had resolved in the waiting room but now has returned. Patient denies abdominal bloating. Related Data Home Medications Medication Instructions Recorded Confirmed mcg PO 04/18/19 cholecalciferol (vitamin D3) 07/02/19 ferrous sulfate 07/02/19 Allergies Allergy/AdvReac Type Severity Reaction Status Date / Time No Known Allergies Allergy Verified 02/16/20 11:17 Review of Systems Review of Systems: Narrative: CONSTITUTIONAL: Denies fever, chills, or sweats. EYES: Denies visual changes, redness, or discharge. ENT: Denies rhinorrhea, congestion, sore throat, or otalgia. CARDIOVASCULAR: Denies chest pain, palpitations, or edema. RESPIRATORY: Denies cough or dyspnea. GASTROINTESTINAL: Reports abdominal pain, nausea without vomiting, reports diarrhea GENITOURINARY: Denies dysuria or hematuria. SKIN: Denies rash or itching. MUSCULOSKELETAL: Denies back pain, joint pain, or myalgia. NEUROLOGIC: Denies headache, numbness, or weakness. [facility] Past Medical History Medical History (Updated 02/16/20 @ 12:35 by Maritza Veliz MD) Anemia Gestational HTN Surgical History Surgical History (Updated 02/16/20 @ 12:16 by Maritza Veliz MD) H/O section Jan 2017 History of appendectomy Family History Family History Sibling Diabetes mellitus Social History Social History Smoking status: Never smoker Substance use: never Spiritual care concerns: No Exam Narrative: Exam Narrative: GENERAL: Awake, alert, conversant, tearful HEAD: Normocephalic, atraumatic. EYES: PERRLA and EOMI. ENT: Nares clear, no rhinorrhea or epistaxis. Mucous membranes moist. NECK: Supple. CHEST: No respiratory distress, breathing even and non labored HEART: Regular rate, sinus rhythm ABDOMEN: Obese, Non distended, pain is not reproducible on exam, no epigastric pain, no periumbilical tenderness, no focal quadrant tenderness, no rebound rigidity or guarding, no lower pelvic tenderness EXTREMITIES: Normal range of motion. No edema. SKIN: Warm, dry, no rash. NEURO:No focal deficits. Alert and oriented x3 Course Vital Signs Vital signs: Vital Signs Temperature 36.3 C L 02/16/20 11:13 Pulse Rate 86 02/16/20 11:13 Respiratory Rate 16 02/16/20 11:13 Blood Pressure 115/79 02/16/20 11:13 Pulse Oximetry 99 02/16/20 11:13 Temperature 36.3 C L 02/16/20 11:13 Pulse Rate 86 02/16/20 11:13 Respiratory Rate 16 02/16/20 11:13 Blood Pressure 115/79 02/16/20 11:13 Pulse Oximetry 99 02/16/20 11:13 MDM - Abdominal Pain MDM Narrative Medical decision making narrative: Patient presented for evaluation of abdominal cramping which is intermittent in nature. At times it is severe, at bedside the pain is not reproducible on patient has quite a benign abdominal exam without peritoneal signs. Patient was given IV fluids, antiemetic and pain medication. Patient was reassessed and patient's abdomen is so
[2020-02-16] MEDS: SODIUM CHLORIDE 0.9% IV 1,000 ML 999 ML IV CONT (11:30)
[2020-02-16] MEDS: MORPHINE SULFATE (*CRX) 4 MG/ML INJ IV PUSH (11:30)
[2020-02-16] MEDS: ONDANSETRON INJ 4 MG/2 ML VIAL IV PUSH (11:30)
[2020-02-16] MEDS: DICYCLOMINE HCL INJ 20 MG/2 ML VIAL IM (11:30)
[2020-02-16 11:35] LABS: Basophils Absolute Auto 0.1 K/mm3 (0.0-0.1); Basophils Percent Auto 0.7 % (0.2-1.2); Eosinophils Percent Auto 0.5 % (0-4.4); Hematocrit 38.9 % (37.0-47.0); Hemoglobin 13.4 g/dL (12.0-15.0); Immature Granulocyte Absolute 0.02 K/mm3 (0.00-0.031); Immature Granulocyte Percent A 0.3 % (0-0.5); Lymphocytes Absolute Auto 1.56 K/mm3 (0.9-3.2); Lymphocytes Percent Auto 21.1 % (18.3-44.2); Mean Corpuscular HGB Conc 34.4 g/dl (32-36); Mean Corpuscular Hemoglobin 29.8 pg (26-34); Mean Corpuscular Volume 86.4 fl (80-100); Mean Platelet Volume 9.9 fl (7.4-10.4); Monocytes Absolute Auto 0.5 K/mm3 (0.1-0.6); Monocytes Percent Auto 6.9 % (2.6-8.5); Neutrophils Absolute Auto 5.2 K/mm3 (1.3-6.7); Neutrophils Percent Auto 70.5 % (45.5-73.1); Platelet Count Result 210 k/mm3 (150-375); White Blood Count 7.4 K/mm3 (4.5-10.0)
[2020-02-16 11:40] LABS: Add Urine Microscopic? YES; Appearance Urine Clear (Clear); Bilirubin Urine Negative (Negative); Blood Urine Negative (Negative); Color Urine Yellow (Yellow); Glucose Urine UA Negative (Negative); Ketones Urine Negative (Negative); Leukocyte Esterase Ur 1+ LEU/UL (Negative); Mucus Urine Rare /lpf; Nitrate Urine Negative (Negative); Protein Urine 1+ mg/dL (Negative); RBC Urine 0-2 /hpf (0-2); Specific Grav Ur 1.023 (1.001-1.035); Squamous Epithelial Cell Urine Few /hpf (Few); Urobilinogen Urine Negative mg/dL (<2.0); WBC Urine 31-50 /hpf
[2020-02-16 11:53] LABS: Alanine Aminotransferase 17 U/L (4-35); Albumin Level 4.1 g/dL (3.5-5.1); Alkaline Phosphatase 65 U/L (38-126); Anion Gap 6 mmol/L (8-16); Aspartate Amino Transferase 24 U/L (14-36); Bilirubin,Total 0.3 mg/dL (0.2-1.3); Blood Urea Nitrogen 11 mg/dL (7-17); Calcium 8.9 mg/dL (8.4-10.2); Carbon Dioxide 26 mmol/L (22-30); Chloride 106 mmol/L (98-107); Estimated CRCL calculation 112 ml/min; Estimated Glomerular Filt Rate > 60; Glucose 107 mg/dL (65-105); Lipase 44 U/L (23-300); Potassium 3.9 mmol/L (3.4-5.0); Sodium 138 mmol/L (137-145)
[2020-02-16 14:09] VITALS: BP 114/63; PULSE 83; RESP 17; O2SAT 99
== END 2020-02-16 14:11 | disposition home or self-care (01) ==
PROVIDERS: Emergency Medicine; Emergency Provider Emergency Medicine
DX: N83.201 Unspecified ovarian cyst, right side (principal); R10.9 Unspecified abdominal pain; D64.9 Anemia, unspecified
CPT/HCPCS: 36415; 74177; 76830; 76856; 80053; 81001; 81025; 83690; 85025; 87077; 87086; 87088; 87186; 96361; 96372; 96374; 96375; 99284; J0500; J2270; J2405; J7030; Q9967

== ENCOUNTER 2020-02-24 14:33 | Emergency (ER) | payer BC, OTHER, SELFPAY ==
[2020-02-24 14:38] VITALS: BP 128/74; PULSE 72; RESP 20; TEMP 36.6; O2SAT 100
--- NOTE | 2020-02-24 14:39 | ED.URI ---
HPI - URI/Sore Throat General Chief Complaint: Upper Respiratory Infection Stated Complaint: sore throat and ear pain Time Seen by Provider: 02/24/20 14:39 Source: patient and RN notes reviewed History of Present Illness HPI Narrative: Patient is a 29-year-old female who presents the urgent care with complaints of sore throat and right ear pain since yesterday. Patient states that no one else in the home is sick. Denies of any fever, nausea, vomiting. Denies of any use of [id number] medication for symptoms. Denies of any known exposure with Strep or Covid. No other acute complaints. No acute distress noted. Patient aware of the plan of care. Some parts of this dictation were generated by voice recognition software and may contain typographical and/or grammatical inaccuracies. Related Data Home Medications Medication Instructions Recorded Confirmed No Home Medications 02/24/20 02/24/20 Allergies Allergy/AdvReac Type Severity Reaction Status Date / Time No Known Allergies Allergy Verified 02/24/20 14:57 Review of Systems Review of Systems: Narrative: CONSTITUTIONAL: Denies fever, chills, or sweats. EYES: Denies visual changes, redness, or discharge. ENT: Reports of sore throat and right ear pain CARDIOVASCULAR: Denies chest pain, palpitations, or edema. RESPIRATORY: Denies cough or dyspnea. GASTROINTESTINAL: Denies abdominal pain, nausea, vomiting, or diarrhea. GENITOURINARY: Denies dysuria or hematuria. SKIN: Denies rash or itching. MUSCULOSKELETAL: Denies back pain, joint pain, or myalgia. NEUROLOGIC: Denies headache, numbness, or weakness. All other systems reviewed are negative, except as documented in HPI. [facility] Past Medical History Medical History (Updated 02/24/20 @ 14:55 by FALGUNI Alexander) Anemia Gestational HTN Surgical History Surgical History (Updated 02/16/20 @ 12:16 by Maritza Veliz MD) H/O section Jan 2017 History of appendectomy Family History Family History Sibling Diabetes mellitus Social History Social History Smoking status: Never smoker Substance use: never Spiritual care concerns: No Comments At the time of my signature, I reviewed and agree with the nursing past medical, surgical, social, and family history. There is no relevant family history pertinent to the patient complaint. Exam Narrative: Exam Narrative: GENERAL: This is a well-nourished, well-developed patient, in no apparent distress. HEAD: normocephalic, atraumatic. EYES: PERRL. Sclera clear/white. Vision is grossly intact. EARS: External ears normal, auditory canals clear and without drainage, TMs normal without perforation. Hearing grossly intact. NOSE: External nose normal with no obvious nasal discharge, nares without redness, no rhinorrhea. THROAT: Mucous membranes moist, moderate erythema noted posterior oropharynx with mild postnasal drainage. No exudate or ulceration. NECK: Neck supple, mild nontender right submandibular lymphadenopathy CARDIOVASCULAR: Regular rate and rhythm without murmurs, gallops, or rubs. RESPIRATORY: Clear to auscultation. Breath sounds equal bilaterally. No wheezes, rales, or rhonchi. SKIN: warm, intact with no suspicious lesions or rash, good texture and turgor. NEURO: awake, alert, and oriented to person, place and time. There were no obvious focal neurologic abnormalities. EXTREMITIES: No clubbing, cyanosis, or edema. Course Vital Signs Vital signs: Vital Signs Temperature 97.8 F 02/24/20 14:38 Pulse Rate 72 02/24/20 14:38 Respiratory Rate 02/24/20 14:38 Blood Pressure 128/74 02/24/20 14:38 Pulse Oximetry 100 02/24/20 14:38 Temperature 97.8 F 02/24/20 14:38 Pulse Rate 72 02/24/20 14:38 Respiratory Rate 20 02/24/20 14:38 Blood Pressure 128/74 02/24/20 14:38 Pulse Oximetry 100 02/24/20 14:38
== END 2020-02-24 14:58 | disposition home or self-care (01) ==
PROVIDERS: Emergency Provider Nurse Practitioner Family
DX: J02.9 Acute pharyngitis, unspecified (principal); Z86.2 Personal history of diseases of the blood and blood-forming organs and certain disorders involving the immune mechanism
CPT/HCPCS: 87081; 87880; 99213; G0463

== ENCOUNTER 2021-05-08 16:43 | Emergency (ER) | payer BC, OTHER, SELFPAY ==
--- NOTE | 2021-05-08 16:48 | ED.NAVMDI ---
HPI - Nausea/Vomiting/Diarrhea General Chief complaint: Nausea/Vomiting/Diarrhea Stated complaint: Abdominal Pain/Diarrhea Time Seen by Provider: 05/08/21 16:55 Source: patient Mode of arrival: ambulatory Limitations: no limitations History of Present Illness HPI Narrative: Ms. Boone is a 30-year-old female patient presenting to the clinic today with complaints of abdomen discomfort and diarrhea x1 day. She reports she has had approximately 6-7 diarrhea stools today with abdominal cramping. She denies any nausea. She is able to keep down fluids states that her stomach will cramp and then she has to use the restroom. No known exposure to anyone with Covid. She has had Covid about a month ago. Reports she went to a birthday green party last night and someone there had a family member who is sick at home with a stomach bug. She denies any fever chills. She denies any abdominal pain other than the cramping MD elicited complaint: diarrhea and abdominal pain Related Data Home Medications Medication Instructions Recorded Confirmed No Home Medications 02/24/20 02/24/20 Allergies Allergy/AdvReac Type Severity Reaction Status Date / Time No Known Allergies Allergy Verified 05/08/21 16:56 Review of Systems Review of Systems: Pertinent positives per HPI. Patient denies any fever, chills, rash, headache, visual changes, dizziness, cough, runny nose, sore throat, shortness of breath, chest pain, palpitations, nausea, vomiting,constipation, or any urinary issues. [facility] Past Medical History Medical History Anemia Gestational HTN Surgical History Surgical History H/O section Jan 2017 History of appendectomy Family History Family History Sibling Diabetes mellitus Social History Social History Smoking status: Never smoker Substance use: never Spiritual care concerns: No Comments At the time of my signature, I reviewed and agree with the nursing past medical, surgical, social, and family history. There is no relevant family history pertinent to the patient complaint. Exam Narrative: General: Well-developed, well nourished, in no apparent distress. Cardio: Regular rate and rhythm, s1 and s2 normal, no murmur appreciated. Resp: Clear to auscultation bilaterally, no rhonchi, rales, wheezing or rubs. Abdomen: Soft, pliable, bowel sounds present in all quadrants, non-tender to palpation, no organomegly, no CVAT tenderness. No suprapubic tenderness. Course Course Emergency Course: Portions of this record may have been created with voice recognition software. Level of Care: Express Care Visit Vital Signs Vital signs: Vital signs reviewed MDM - Nausea/Vomiting/Diarrhea MDM Narrative Medical decision making narrative: Rule out upon exam for appendicitis, constipation, or infectious cause. Patient had normal bowel movement yesterday and started having diarrhea this morning. She denies any fever chills or abdominal pain. She has cramping prior to having a loose stool. Negative Vasquez, Rovsing's, and McBurney's point. She denies any urinary symptoms. She is able to oral hydrate. Discharge Plan Discharge Clinical Impression: Gastroenteritis Patient Disposition: Home, Self-Care Condition: Stable Instructions: Antibiotic Form Additional Instructions: Take prescription medications only as prescribed. Hyoscyamine as directed. May take Imodium as directed as long as there is no blood in your stool Increase fluids and stay well hydrated Tylenol/motrin for pain/fever BRAT diet for diarrhea Clear liquids x 24 hours then advance as tolerated for nausea/vomiting Go to the ED if you develop dehydration, weakness, lethargy, shortness of breath, ami
[2021-05-08 16:50] VITALS: BP 115/66; PULSE 84; RESP 16; TEMP 36.9; O2SAT 99
== END 2021-05-08 17:03 | disposition home or self-care (01) ==
PROVIDERS: Emergency Provider Nurse Practitioner Family
DX: K52.9 Noninfective gastroenteritis and colitis, unspecified (principal); Z86.16 Personal history of COVID-19
CPT/HCPCS: 99213; G0463

== ENCOUNTER 2021-09-03 14:45 | Emergency (ER) | payer BC, OTHER, SELFPAY ==
[2021-09-03 14:48] VITALS: BP 118/72; PULSE 76; RESP 16; TEMP 37.1; O2SAT 100
[2021-09-03 14:55] VITALS: BP 118/72; PULSE 76; RESP 16; TEMP 37.1; O2SAT 100
--- NOTE | 2021-09-03 15:31 | ED.EAR ---
HPI - Ear Problem General Chief complaint: Ear Stated complaint: Ear Pain Time Seen by Provider: 09/03/21 15:31 Source: patient Mode of arrival: ambulatory Limitations: no limitations History of Present Illness HPI Narrative: 30-year-old female presented for complaint of left ear pain worsening over the past 10 days. Endorses intermittent sharp shocking pain. She has been taking Tylenol which is helped but today the pain worsened. Endorses mild sinus pressure and congestion. Denies sore throat, cough, dizziness, tenderness, fevers or chills. MD Complaint: ear pain Related Data Home Medications Medication Instructions Recorded Confirmed etonogestrel 68 mg subdermal 1 implant subdermal ONCE 09/03/21 09/03/21 implant (Nexplanon) Allergies Allergy/AdvReac Type Severity Reaction Status Date / Time No Known Allergies Allergy Verified 09/03/21 14:54 Review of Systems Review of Systems: CONSTITUTIONAL: Denies malaise, chills, or fever. EYES: Denies visual changes, redness, or discharge. ENT: Denies sinus pain, and sore throat. Reports ear pain CARDIOVASCULAR: Denies chest pain, palpitations, or edema. RESPIRATORY: Denies cough or dyspnea. GASTROINTESTINAL: Denies abdominal pain, nausea, vomiting, diarrhea SKIN: Denies rash or itching. MUSCULOSKELETAL: Denies myalgia. NEUROLOGIC: Denies headache. All systems reviewed & are unremarkable except as noted in HPI and below PMFSH Past Medical History Medical History Anemia Gestational HTN Surgical History Surgical History H/O section Jan 2017 History of appendectomy Family History Family History Sibling Diabetes mellitus Social History Social History Smoking status: Never smoker Substance use: never Spiritual care concerns: No Comments At time of signature, agree with nursing past medical, surgical, social and family history. There is no relevant family history pertinent to the presenting complaint Exam Narrative: GENERAL: Well-appearing EYES: conjunctivae clear ENT: Nares clear. Mucous membranes moist. Right TM pearly johnson with dull light reflex; left TM erythematous and bulging with fluid and erythematous tender canal; no tragal tenderness. Oropharynx not erythematous without lesions. CHEST: Clear to auscultation HEART: Regular rate and rhythm. SKIN: Warm, dry, no rash. NEURO: Alert and oriented x3. Course Course Emergency Course: Patient is aware of diagnosis, understands and agrees to treatment plan. Anticipatory guidance given. Patient agrees to follow-up as directed and is aware of reasons to seek care at the emergency department. Portions of this record may have been created with voice recognition software Level of Care: Express Care Visit Vital Signs Vital signs: Vital Signs Temperature 98.8 F 09/03/21 14:48 Pulse Rate 76 09/03/21 14:48 Respiratory Rate 16 09/03/21 14:48 Blood Pressure 118/72 09/03/21 14:48 Pulse Oximetry 100 09/03/21 14:48 Oxygen Delivery Room Air 09/03/21 14:48 Temperature 98.8 F 09/03/21 14:55 Pulse Rate 76 09/03/21 14:55 Respiratory Rate 16 09/03/21 14:55 Blood Pressure 118/72 09/03/21 14:55 Pulse Oximetry 100 09/03/21 14:55 Oxygen Delivery Room Air 09/03/21 14:55 Reviewed Medical Decision Making MDM Narrative Medical decision making narrative: patient is non-toxic appearing and is in no distress. Advised supportive treatment for AOM an antibiotic as directed. Pt is appropriate for outpatient treatment and follow-up. Differential Diagnosis Differential Diagnosis: allergic rhinitis, upper respiratory tract infection, sinusitis, rhinosinusitis, nasopharyngitis, viral pharyngitis, otitis media, otitis externa, eustachi
== END 2021-09-03 15:39 | disposition home or self-care (01) ==
PROVIDERS: Emergency Provider Nurse Practitioner Family
DX: H66.002 Acute suppurative otitis media without spontaneous rupture of ear drum, left ear (principal)
CPT/HCPCS: 99213; G0463

== ENCOUNTER 2021-11-20 09:20 | Emergency (ER) | payer BC, OTHER, SELFPAY ==
--- NOTE | 2021-11-20 09:21 | ED.EAR ---
HPI - Ear Problem General Chief complaint: Ear Stated complaint: Ear Pain Time Seen by Provider: 11/20/21 09:21 Source: patient and RN notes reviewed History of Present Illness HPI Narrative: Patient is a 30-year-old female who presents the urgent care with complaints of left ear pain for 1 week. Patient has been taking Benadryl and Claritin for the last couple days. Denies any drainage from the ear. Denies any fevers or other upper respiratory complaints. No acute distress noted. Patient read the plan of care. Some parts of this dictation were generated by voice recognition software and may contain typographical and/or grammatical inaccuracies. Related Data Home Medications Medication Instructions Recorded Confirmed No Home Medications 11/20/21 11/20/21 Allergies Allergy/AdvReac Type Severity Reaction Status Date / Time No Known Allergies Allergy Verified 11/20/21 09:27 Review of Systems Review of Systems: CONSTITUTIONAL: Denies fever, chills, or sweats. EYES: Denies visual changes, redness, or discharge. ENT: Denies rhinorrhea, congestion, sore throat. Reports of left otalgia CARDIOVASCULAR: Denies chest pain, palpitations, or edema. RESPIRATORY: Denies cough or dyspnea. GASTROINTESTINAL: Denies abdominal pain, nausea, vomiting, or diarrhea. GENITOURINARY: Denies dysuria or hematuria. SKIN: Denies rash or itching. MUSCULOSKELETAL: Denies back pain, joint pain, or myalgia. NEUROLOGIC: Denies headache, numbness, or weakness. All other systems reviewed are negative, except as documented in HPI. [facility] Past Medical History Medical History Anemia Gestational HTN Surgical History Surgical History H/O section Jan 2017 History of appendectomy Family History Family History Sibling Diabetes mellitus Social History Social History Smoking status: Never smoker Substance use: never Spiritual care concerns: No Comments At the time of my signature, I reviewed and agree with the nursing past medical, surgical, social, and family history. There is no relevant family history pertinent to the patient complaint. Exam Narrative: GENERAL: This is a well-nourished, well-developed patient, in no apparent distress. HEAD: normocephalic, atraumatic. EYES: PERRL. Sclera clear/white. Vision is grossly intact. EARS: External ears normal, auditory canals clear and without drainage, mild bilateral eustachian tube dysfunction without otitis. TMs normal without perforation. Hearing grossly intact. NOSE: External nose normal with no obvious nasal discharge, nares without redness, no rhinorrhea. THROAT: Mucous membranes moist, posterior pharynx clear. NECK: Neck supple, non-tender without lymphadenopathy CARDIOVASCULAR: Regular rate and rhythm without murmurs, gallops, or rubs. RESPIRATORY: Clear to auscultation. Breath sounds equal bilaterally. No wheezes, rales, or rhonchi. SKIN: warm, intact with no suspicious lesions or rash, good texture and turgor. NEURO: awake, alert, and oriented to person, place and time. There were no obvious focal neurologic abnormalities. EXTREMITIES: No clubbing, cyanosis, or edema. Course Course Level of Care: Express Care Visit Vital Signs Vital signs: Vital Signs Temperature 97.6 F 11/20/21 09:24 Pulse Rate 67 11/20/21 09:24 Respiratory Rate 20 11/20/21 09:24 Blood Pressure 113/60 11/20/21 09:24 Pulse Oximetry 100 11/20/21 09:24 Oxygen Delivery Room Air 11/20/21 09:24 Temperature 97.6 F 11/20/21 09:24 Pulse Rate 67 11/20/21 09:24 Respiratory Rate 20 11/20/21 09:24 Blood Pressure 113/60 11/20/21 09:24 Pulse Oximetry 100 11/20/21 09:24 Oxygen Delivery Room Air 11/20/21 09:24 Reviewed Medical Decisio
[2021-11-20 09:24] VITALS: BP 113/60; PULSE 67; RESP 20; TEMP 36.4; O2SAT 100
== END 2021-11-20 09:33 | disposition home or self-care (01) ==
PROVIDERS: Emergency Provider Nurse Practitioner Family
DX: H92.02 Otalgia, left ear (principal)
CPT/HCPCS: 99211; G0463

== ENCOUNTER 2021-11-22 11:50 | Emergency (ER) | payer BC, OTHER, SELFPAY ==
[2021-11-22 12:00] VITALS: BP 114/78; PULSE 73; RESP 16; TEMP 36.7; O2SAT 99
--- NOTE | 2021-11-22 12:28 | ED.EAR ---
HPI - Ear Problem General Chief complaint: Ear Stated complaint: L ear pain Time Seen by Provider: 11/22/21 11:51 History of Present Illness HPI Narrative: 30-year-old female presents the emergency room for evaluation of left ear pain. Patient states that she has been experiencing the pain for 4 to 5 days. Patient's admits to recently having an URI symptoms have since resolved. Patient states she was seen at urgent care on Saturday and was told to take Claritin and Flonase for her symptoms. Patient reports ear pain radiates into her throat and jaw. Denies any hearing loss or hearing changes. Denies any known injury or trauma. Denies tinnitus Related Data Allergies Allergy/AdvReac Type Severity Reaction Status Date / Time No Known Allergies Allergy Verified 11/20/21 09:27 Review of Systems Review of Systems: CONSTITUTIONAL: Denies fever, chills, or sweats. EYES: Denies visual changes, redness, or discharge. ENT: Reports left ear pain CARDIOVASCULAR: Denies chest pain, palpitations, or edema. RESPIRATORY: Denies cough or dyspnea. GASTROINTESTINAL: Denies abdominal pain, nausea, vomiting, or diarrhea. GENITOURINARY: Denies dysuria or hematuria. SKIN: Denies rash or itching. MUSCULOSKELETAL: Denies back pain, joint pain, or myalgia. NEUROLOGIC: Denies headache, numbness, dizziness, or weakness. PSYCHIATRIC: Denies anxiety or depression. PMFSH Past Medical History Medical History Anemia Gestational HTN Surgical History Surgical History H/O section Jan 2017 History of appendectomy Family History Family History Sibling Diabetes mellitus Social History Social History Smoking status: Never smoker Substance use: never Spiritual care concerns: No Exam Narrative: GENERAL: Well-appearing, well-nourished, no physical limitations, and in no acute distress. HEAD: Normocephalic, atraumatic. EYES: Conjunctivae normal, PERRLA and EOMI. ENT: External nose normal, Nares clear, no rhinorrhea or epistaxis. Mucous membranes moist. Oropharynx without tonsillar hypertrophy exudate or other lesions. External ears normal, bilateral TMs normal bilaterally. Tenderness extends from posterior to left ear along the corner of the jaw. NECK: Supple. No adenopathy or masses. CHEST: Clear to auscultation. No respiratory distress. No wheezes rales or rhonchi. No tenderness. HEART: Regular rate and rhythm. No murmur heard. Normal peripheral pulses. EXTREMITIES: Normal range of motion. No edema. No clubbing or cyanosis SKIN: Warm, dry, no rash. No noted wounds NEURO: No focal deficits. Alert and oriented x3. MAEW. CN's II-XI intact bilaterally, normal gait PSYCH: Cooperative. Normal mood and affect. Course Vital Signs Vital signs: Vital Signs Temperature 36.7 C 11/22/21 12:00 Pulse Rate 73 11/22/21 12:00 Respiratory Rate 16 11/22/21 12:00 Blood Pressure 114/78 11/22/21 12:00 Pulse Oximetry 99 11/22/21 12:00 Oxygen Delivery Room Air 11/22/21 12:00 Temperature 36.7 C 11/22/21 12:00 Pulse Rate 73 11/22/21 12:00 Respiratory Rate 16 11/22/21 12:00 Blood Pressure 114/78 11/22/21 12:00 Pulse Oximetry 99 11/22/21 12:00 Oxygen Delivery Room Air 11/22/21 12:00 Medical Decision Making Vital Signs Vital Signs: Vital Signs Temperature 36.7 C 11/22/21 12:00 Pulse Rate 73 11/22/21 12:00 Respiratory Rate 16 11/22/21 12:00 Blood Pressure 114/78 11/22/21 12:00 Pulse Oximetry 99 11/22/21 12:00 Oxygen Delivery Room Air 11/22/21 12:00 Temperature 36.7 C 11/22/21 12:00 Pulse Rate 73 11/22/21 12:00 Respiratory Rate 16 11/22/21 12:00 Blood Pressure 114/78 11/22/21 12:00 Pulse Oximetry 99 11/22/21 12:00 Oxygen Delivery R
== END 2021-11-22 12:46 | disposition home or self-care (01) ==
PROVIDERS: Emergency Provider Nurse Practitioner Family
DX: H69.82 Other specified disorders of Eustachian tube, left ear (principal); Z86.2 Personal history of diseases of the blood and blood-forming organs and certain disorders involving the immune mechanism
CPT/HCPCS: 96372; 99283; J1100

== ENCOUNTER 2022-02-13 13:22 | Outpatient (CLI) | payer BC, OTHER, SELFPAY ==
--- NOTE | ~2022-02-13 | US_ITS ---
US breast RT limited INDICATION: Palpable right breast lump TECHNIQUE: Dedicated Limited right breast ultrasound COMPARISON: No prior studies for comparison. FINDINGS: The right breast is composed of normal heterogeneous echotexture without focal solid or cys tic mass. IMPRESSION: 1: Normal right breast ultrasound. BI-RADS CATEGORY 1 - NEGATIVE Reviewed, dictated and finalized at location B. 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
== END 2022-02-13 13:23 | disposition home or self-care (01) ==
PROVIDERS: PCP Physician Assistant; Visit Provider Obstetrics & Gynecology
DX: R92.8 Other abnormal and inconclusive findings on diagnostic imaging of breast (principal); N63.10 Unspecified lump in the right breast, unspecified quadrant
CPT/HCPCS: 76642

== ENCOUNTER 2022-08-17 12:25 | Outpatient (CLI) | payer BC, OTHER, SELFPAY ==
--- NOTE | ~2022-08-17 | MMUS_ITS ---
EXAMINATION: MM diagnostic hugo RT w benjamin, US breast RT limited HISTORY: Right breast lump, 12:00 4 cm from nipple TECHNIQUE: ML, MLO and CC full field and spot 3-D tomosynthesis images of the right breast were perfo rmed and synthetic 2-D images were generated. CAD analysis was submitted and interpreted. High resolu tion targeted right breast ultrasound examination at area of clinical complaint at 12:00 4 cm from ni pple was performed. COMPARISON: 02/13/2022 Limited right breast ultrasound BREAST PARENCHYMAL COMPOSITION: The breasts are heterogeneously dense, which may obscure small masses . FINDINGS: MAMMOGRAPHIC FINDINGS: No suspicious mass or architectural distortion, malignant calcification, skin thickening or retractio n is detected. ULTRASOUND: No suspicious mass or shadowing, cyst or other significant abnormality is detected at the area of cli nical complaint at 12:00 4 cm from nipple IMPRESSION: 1. No mammographic evidence of malignancy 2. Routine annual mammographic screening beginning at age 40 is recommended BI-RADS Category 1: Negative Reviewed, dictated and finalized at location A. IMPRESSION: 1. No mammographic evidence of malignancy 2. Routine annual mammographic screening beginning at age 40 is recommended BI-RADS Category 1: Negative
== END 2022-08-17 12:26 | disposition home or self-care (01) ==
PROVIDERS: PCP Physician Assistant; Visit Provider Obstetrics & Gynecology
DX: N63.10 Unspecified lump in the right breast, unspecified quadrant (principal); R92.8 Other abnormal and inconclusive findings on diagnostic imaging of breast
CPT/HCPCS: 76642; 77061; 77065; G0279

== ENCOUNTER 2023-05-13 12:32 | Emergency (ER) | payer BC, OTHER, SELFPAY ==
[2023-05-13 12:47] VITALS: BP 138/81; PULSE 79; RESP 16; TEMP 37.2; O2SAT 98
--- NOTE | 2023-05-13 13:44 | ED.BACK ---
HPI - Back Pain/Injury General Chief Complaint: Back Pain/Injury Stated Complaint: Back Injury Time Seen by Provider: 05/13/23 13:34 Source: patient and RN notes reviewed Mode of arrival: ambulatory Limitations: no limitations History of Present Illness HPI Narrative: Patient presents today complaining of right-sided low back pain radiating to the anterior and posterior right upper leg. She initially injured herself 3 days ago at the gym weightlifting. She does report some intermittent tingling in the thigh. Denies numbness or tingling in the genitalia. Denies loss of bowel or bladder control. She currently rates her pain 3/10 at rest, which increases to 7/10 with movement. She has tried ibuprofen, Tylenol, icy Hot, and 5 mg Flexeril without relief. Related Data Home Medications Medication Instructions Recorded Confirmed lisdexamfetamine 50 mg capsule mg 05/13/23 (Vyvanse) norethindrone 1 mg-ethinyl tablet 05/13/23 estradiol 20 mcg (21)-iron 75 mg (7) tablet (Blisovi Fe 03/23 (28)) Allergies Allergy/AdvReac Type Severity Reaction Status Date / Time No Known Allergies Allergy Verified 12/12/21 15:00 Review of Systems Review of Systems: CONSTITUTIONAL: Denies body aches, fever, chills, or sweats. EYES: Denies visual changes, redness, or discharge. ENT: Denies rhinorrhea, congestion, sore throat, or otalgia. CARDIOVASCULAR: Denies chest pain, palpitations, or edema. RESPIRATORY: Denies cough or dyspnea. GASTROINTESTINAL: Denies abdominal pain, nausea, vomiting, or diarrhea. GENITOURINARY: Denies dysuria or hematuria. SKIN: Denies rash, itching, or wounds. MUSCULOSKELETAL: Denies joint pain, or myalgia.+ low back pain NEUROLOGIC: Denies headache, numbness, or weakness.+ right leg tingling PSYCH: Denies depression or anxiety. FOR[facility]LY [facility], [facility] Past Medical History Medical History Anemia Gestational HTN Surgical History Surgical History H/O section Jan 2017 History of appendectomy Family History Family History Sibling Diabetes mellitus Social History Social History Smoking status: Never smoker Alcohol intake: never Substance use: never Spiritual care concerns: No Comments At time of signature, I have reviewed and agree with nursing past medical, surgical, social and family history unless otherwise noted. Please see nursing chart for further information. There is no relevant family history pertinent to the presenting complaint Exam Narrative: GENERAL: Well-appearing, well-nourished, and in no acute distress. HEAD: Normocephalic, atraumatic. EYES: EOMI. No redness or drainage. Conjunctivae normal. ENT: Mucous membranes pink and moist. NECK: Normal AROM. CHEST: No respiratory distress. MUSCULOSKELETAL: No bony tenderness of the thoracic or lumbar spine. No tenderness of the right lower lumbar paraspinal muscles or right SI joint. Patient localizes pain to the right lower lumbar paraspinal muscles extending laterally to the right hip. Distal sensation intact. Saddle sensation intact. Capillary refill normal. EXTREMITIES: Normal range of motion. No edema. SKIN: Warm, dry, no rash. Capillary refill normal. Normal skin turgor. NEURO: No focal deficits. Alert and oriented x3. Gait steady. PSYCH: Normal affect. No signs of depression or anxiety. Course Course Level of Care: Express Care Visit Vital Signs Vital signs: Vital Signs Temperature 98.9 F 05/13/23 12:47 Pulse Rate 79 05/13/23 12:47 Respiratory Rate 16 05/13/23 12:47 Blood Pressure 138/81 05/13/23 12:47 Pulse Oximetry 98 05/13/23 12:47 Oxygen Delivery Room Air 05/13/23 12:47 Temperature 98.9 F 05/13/23 12:47 Pulse Rate 79 05/13/23
== END 2023-05-13 13:56 | disposition home or self-care (01) ==
PROVIDERS: Emergency Provider Nurse Practitioner; PCP Physician Assistant
DX: S39.012A Strain of muscle, fascia and tendon of lower back, initial encounter (principal); X58.XXXA Exposure to other specified factors, initial encounter; Y93.B3 Activity, free weights
CPT/HCPCS: 81003; 99213; G0463

== ENCOUNTER 2023-08-23 11:14 | Emergency (ER) | payer OTHER, SELFPAY ==
[2023-08-23 11:19] VITALS: BP 114/69; PULSE 76; RESP 18; TEMP 36.6; O2SAT 100
--- NOTE | 2023-08-23 11:32 | ED.URI ---
HPI - URI/Sore Throat General Chief Complaint: Upper Respiratory Infection Stated Complaint: Throat Time Seen by Provider: 08/23/23 11:25 Source: patient, RN notes reviewed and old records reviewed Mode of arrival: ambulatory Limitations: no limitations History of Present Illness HPI Narrative: 32-year-old female who presents to [facility] with complaints of sore throat for the past 3 days. Patient reports that her brother tested positive for strep yesterday and she has been around him and also mother in law with positive strep. Patient denies any fevers no nausea or vomiting or any cough or sinus congestion. Patient wants tested also for COVID. Patient reports that she can't eat her throat is too sore.Patient has not taken any OTC medication for her symptoms. MD elicited complaint: sore throat Pertinent past history: other (previous strep throat) Onset (ago): day(s) (3) Pain scale (0-10): 4 Able to tolerate fluids by mouth: Yes Treatments prior to arrival: none Related Data Home Medications Medication Instructions Recorded Confirmed norethindrone 1 mg-ethinyl 1 tablet PO DAILY 05/13/23 08/23/23 estradiol 20 mcg (21)-iron 75 mg (7) tablet (Blisovi Fe 03/23 (28)) Allergies Allergy/AdvReac Type Severity Reaction Status Date / Time No Known Allergies Allergy Verified 08/23/23 11:27 Review of Systems Review of Systems: CONSTITUTIONAL: Denies malaise, chills, sweats, or fever. EYES: Denies visual changes, redness, or discharge. ENT: Reports no rhinorrhea, congestion, sinus pain, otalgia and positive for sore throat. CARDIOVASCULAR: Denies chest pain, palpitations, or edema. RESPIRATORY: Reports cough.? Denies dyspnea. GASTROINTESTINAL: Denies abdominal pain, nausea, vomiting, diarrhea SKIN: Denies rash or itching. MUSCULOSKELETAL: Denies myalgia. NEUROLOGIC: Denies headache. All systems reviewed & are unremarkable except as noted in HPI and below PMFSH Past Medical History Medical History (Updated 08/24/23 @ 17:19 by Maritza Hairston NP) Anemia Gestational HTN Miscarriage x2 Surgical History Surgical History H/O section Jan 2017 total X3 H/O eye surgery bilateral eye muscle surgery History of appendectomy History of placement of ear tubes Family History Family History Sibling Diabetes mellitus Social History Social History Smoking status: Never smoker Alcohol intake: never Substance use: never Spiritual care concerns: No Comments At time of signature, agree with nursing past medical, surgical, social and family history. There is no relevant family history pertinent to the presenting complaint Exam Narrative: GENERAL: Well-appearing, well-nourished, and in no acute distress. HEAD: Normocephalic EYES: PERRLA, conjunctivae clear ENT: Nares clear, turbinates edematous and erythematous, clear discharge. Mucous membranes moist. TM pearly johnson with dull light reflex bilaterally; no tragal tenderness. Oropharynx erythematous without lesions. Tonsils red not enlarged and without exudate, no drooling, no hoarseness, no trismus, uvula midline.some post nasal drainage. NECK: Supple. No lymphadenopathy CHEST: Clear to auscultation, breath sounds equal. No wheezing, rhonchi, rales, or stridor. No respiratory distress, speaks in full sentences.no cough noted SAO2 100% on room air HEART: Regular rate and rhythm. No murmur heard. SKIN: Warm, dry, no rash. NEURO: Alert and oriented x3. PSYCH: Normal mood and affect Course Course Emergency Course: Patient is aware of diagnosis, understands and agrees to treatment plan.? Anticipatory guidance given.? Patient agrees to follow-up as directed and is aware of reasons to seek care at the emergency department. Portions of this record
== END 2023-08-23 12:04 | disposition home or self-care (01) ==
PROVIDERS: Emergency Provider Registered Nurse; PCP Physician Assistant
DX: J02.9 Acute pharyngitis, unspecified (principal)
CPT/HCPCS: 87081; 87880; 99213; G0463